=== PATIENT | female | born 1990 | race Caucasian/White ===

== ENCOUNTER 2021-02-04 15:51 | Emergency (ER) | payer BC ==
[~2021-02-04] VITALS: Ht 165.1 cm; Wt 85.7 kg
[2021-02-04 16:41] VITALS: BP 136/79
[2021-02-04] MEDS ORDERED: normal saline 1000ML IV soln IVB ONE (16:45)
[2021-02-04] MEDS ORDERED: morphine 4 MG/ML inj SYRINge IV ONE (16:45)
[2021-02-04] MEDS ORDERED: ondansetron/PF 4mg/2ml inj IV ONE (16:50)
[2021-02-04 17:33] LABS: URINE HCG NEGATIVE (NEG)
[2021-02-04 17:34] LABS: CLARITY,URINE SLIGHTLY CLOUDY (Clear); COLOR,URINE YELLOW (Yellow); GLUCOSE, URINE NEGATIVE (Neg); KETONES,URINE >=80 mg/dl (Neg); LEUKOCYTE ESTERASE ,URINE NEGATIVE (Neg); NITRITES, URINE NEGATIVE (Neg); OCCULT BLOOD,URINE LARGE (Neg); PROTEIN,URINE TRACE mg/dl (Neg); UROBILINOGEN,URINE 0.2 E.U/dL (0.2-1.0)
[2021-02-04 17:35] LABS: UA COLLECTION TYPE CLN CATCH MIDSTREAM
[2021-02-04] MEDS: diatr meglu/diatrizoate 30ml oral sol.-(3 dose) bottle PO SCH ×2 (17:35→19:37)
[2021-02-04 17:41] LABS: URINE AMPHETAMINE SCREEN NEGATIVE (Neg); URINE BARBITUATE SCREEN NEGATIVE (Neg); URINE BENZODIAZEPINES SCREEN NEGATIVE (Neg); URINE CANNABINOID SCREEN NEGATIVE (Neg); URINE COCAINE SCREEN NEGATIVE (Neg); URINE METHADONE SCREEN NEGATIVE (Neg); URINE OPIATE SCREEN NEGATIVE (Neg); URINE PHENCYCLIDINE SCREEN NEGATIVE (Neg)
[2021-02-04 17:43] LABS: BACTERIA,URINE 1+ /HPF (Neg); RBC,URINE 20-50 /HPF (0-2); WBC,URINE 0-4 /HPF (0-4)
[2021-02-04 17:45] LABS: MUCUS STRANDS MANY /LPF (Neg)
[2021-02-04 17:46] LABS: SQUAMOUS EPITHELIAL CELL,UR MANY /LPF (FEW)
[2021-02-04 18:22] LABS: BASOPHILS % (AUTO) 0.1 % (0-1); EOSINOPHILS % (AUTO) 0 % (0-6); HEMATOCRIT 38.5 % (35.0-45.0); HEMOGLOBIN 13.4 g/dl (12.0-16.0); LYMPHOCYTES # (AUTO) 0.4 X10'3 (1.1-4.8); LYMPHOCYTES % (AUTO) 3.1 % (21-51); MEAN CORPUSCULAR HEMOGLOBIN 31.1 PG (27.0-31.0); MEAN CORPUSCULAR HGB CONC 34.8 g/dL (33.0-36.5); MEAN CORPUSCULAR VOLUME 89.3 FL (78-98); MEAN PLATELET VOLUME 7.4 FL (7.4-10.4); MONOCYTES # (AUTO) 0.5 X10'3 (0-0.9); MONOCYTES % (AUTO) 3.4 % (2-12); NEUTROPHILS # (AUTO) 12.8 X10'3 (1.8-7.7); NEUTROPHILS % (AUTO) 93.4 % (42-75); PLATELET COUNT 351 X10'3 (140-440); RED BLOOD COUNT 4.31 X10'6 (4.20-5.60); RED CELL DISTRIBUTION WIDTH 12.8 % (11.5-14.5); WHITE BLOOD COUNT 13.6 X10'3 (4.5-11.0)
[2021-02-04 18:24] LABS: ALANINE AMINOTRANSFERASE 27 U/L (12-78); ALBUMIN 4.2 G/DL (3.4-5.0); ALBUMIN/GLOBULIN RATIO 1.2 (1.1-1.5); ALKALINE PHOSPHATASE 56 IU/L (46-116); ANION GAP 14 (8-16); ASPARTATE AMINO TRANSFERASE 19 U/L (10-37); BILIRUBIN,TOTAL 0.4 MG/DL (0.1-1.0); BLOOD UREA NITROGEN 16 MG/DL (7-18); BUN/CREATININE RATIO 15.5 (6.6-38.0); CALCIUM 8.9 MG/DL (8.5-10.1); CHLORIDE 101 MMOL/L (99-107); CREATININE 1.03 MG/DL (0.40-0.90); GLUCOSE 128 MG/DL (70-104); LIPASE 64 U/L (73-393); POTASSIUM 4.1 MMOL/L (3.5-5.1); SODIUM 139 MMOL/L (135-145); TOTAL CARBON DIOXIDE 23.7 MMOL/L (24-32); TOTAL PROTEIN 7.8 G/DL (6.4-8.2); eGFR 63 ML/MIN
[2021-02-04] MEDS ORDERED: iohexol 300mg/ml 100ml inj. ONE (18:32)
--- NOTE | 2021-02-04 20:28 | NUR ---
teo [email or web address]) has permision to receive updates
--- NOTE | 2021-02-04 20:29 | NUR ---
Roberto Carlos (dad) #[phone]
[2021-02-04] MEDS ORDERED: FLO0.4C PO (20:52)
[2021-02-04] MEDS ORDERED: CEPH250T PO (20:52)
[2021-02-04] MEDS ORDERED: ONDA4TAB6 PO (20:52)
[2021-02-04] MEDS ORDERED: HYDR-3965 PO (20:52)
[2021-02-04] MEDS ORDERED: cephalexin 500mg capsule PO ONE (20:55)
== END 2021-02-04 21:23 | disposition home or self-care (01) ==
LOC: EDBD 15:52 → ER 15:52
DX: N20.0 Calculus of kidney (principal); R10.31 Right lower quadrant pain; R11.2 Nausea with vomiting, unspecified; R50.9 Fever, unspecified; Z79.2 Long term (current) use of antibiotics; Z79.899 Other long term (current) drug therapy
CPT/HCPCS: 74177; 80053; 80305; 81001; 81025; 83690; 85025; 96374; 99285; J2405; J7030; Q9963; Q9967